=== PATIENT | female | born 1995 | race American Indian/Alaskan Native ===

== ENCOUNTER 2016-10-17 21:43 | Emergency (ER) | payer OTHER, MEDICAID ==
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
[2016-10-17 23:39] LABS: Bacteria,Urine 1+ /HPF (Negative); Bilirubin,Urine NEG (Negative); Blood,Urine NEG (Negative); Ketones,Urine NEG (Negative); Leukocyte Esterase,Urine NEG (Negative); Mucus,Urine FEW /HPF; Nitrite,Urine NEG (Negative); Protein,Urine <15 mg/dL mg/dL (Negative); Urobilinogen,Urine < 2.0 mg/dL (<2.0)
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
[2016-10-18 04:54] VITALS: BP 121/58
== END 2016-10-18 04:50 | disposition home or self-care (01) ==
LOC: ED 21:43
DX: O26.891 Other specified pregnancy related conditions, first trimester (principal); S39.81XA Other specified injuries of abdomen, initial encounter; Z3A.09 9 weeks gestation of pregnancy; V49.49XA Driver injured in collision with other motor vehicles in traffic accident, initial encounter; Y93.89 Activity, other specified; Y99.8 Other external cause status; Y92.89 Other specified places as the place of occurrence of the external cause
CPT/HCPCS: 36415; 76801; 76817; 81001; 84702